=== PATIENT | male | born 1995 | race African-American/Black ===

== ENCOUNTER 2016-08-28 07:36 | Emergency (ER) | payer OTHER ==
[~2016-08-28] VITALS: Ht 175.3 cm; Wt 77.0 kg
[2016-08-28 07:38] VITALS: BP 126/64; PULSE 84; RESP 14; TEMP 98.3; O2SAT 99
--- NOTE | 2016-08-28 07:43 | PD ---
HPI . sore throat x 1-2 days Chief Complaint: ENT Complaint Time Seen by Provider: 07:42 Travel History International Travel<30 days: No Contact w/Intl Traveler<30days: No Traveled to known affect area: No History of Present Illness HPI 21 yr old male with no PMH here with c/o sore throat for about 1-2 days. He says he has developed such a sore throat that he was unable to smoke cigarettes or marijuana yesterday evening. He tells me the pain is severe where he hasn't been able to drink today. He admits to a history of strep. He denies any fever, chills, drooling, or sob. PFSH Past Medical History Medical History: Denies Significant Hx Social History Tobacco Use: Yes Substance Use: Yes Allergies-Medications (Allergen,Severity, Reaction): Coded Allergies: No Known Allergies (Unverified , 08/24/16) Reported Meds & Prescriptions Reported Meds & Active Scripts Active Amoxicillin 500 Mg Cap 500 Mg PO BID 10 Days Review of Systems General / Constitutional: No: Fever Eyes: No: Visual changes HENT: Positive: Sore Throat, No: Headaches Cardiovascular: No: Chest Pain or Discomfort Respiratory: No: Shortness of Breath Gastrointestinal: No: Abdominal Pain Genitourinary: No: Dysuria Musculoskeletal: No: Pain Skin: No Rash Neurologic: No: Weakness Psychiatric: No: Depression Endocrine: No: Polydipsia Hematologic/Lymphatic: No: Easy Bruising Physical Exam Narrative GENERAL: AAO x 3, no acute distress, Well-nourished, well-developed patient. SKIN: Warm and dry. No visible rashes or bruising. HEAD: Normocephalic and atraumatic. EYES: No scleral icterus. No injection or drainage. ENT: No nasal drainage noted. Mucous membranes pink. Airway patent. Mild posterior pharynx erythema. No edema or exudates. TM normal b/l NECK: Supple, trachea midline. No JVD. CARDIOVASCULAR: Regular rate and rhythm without murmurs, gallops, or rubs. RESPIRATORY: Breath sounds equal bilaterally. No accessory muscle use. No rhonchi or rales. GASTROINTESTINAL: abdomen soft, nontender, nondistended. EXTREMITIES: No cyanosis or edema. BACK: Nontender without obvious deformity. No CVA tenderness. PSYCH: AAO x 3, normal affect. Data Data Last Documented VS Vital Signs Date Time Temp Pulse Resp B/P Pulse Ox O2 Delivery O2 Flow Rate FiO2 08/28/16 07:38 98.3 84 14 126/64 99 MDM Medical Decision Making Medical Screen Exam Complete: Yes Emergency Medical Condition: Yes Medical Record Reviewed: Yes Differential Diagnosis pharyngitis, sinusitis, less likely mononucleosis Narrative Course 21 yr old male with no PMH here with c/o sore throat for about 1-2 days. He says he has developed such a sore throat that he was unable to smoke cigarettes or marijuana yesterday evening. He tells me the pain is severe where he hasn't been able to drink today. He admits to a history of strep. He denies any fever, chills, drooling, or sob. Patient seen and examined. He appears to have acute pharyngitis. It is possible this is likely viral, but with history of strep I will go ahead and treat with amoxicillin. I've advised the patient that he could use Tylenol or Motrin as needed for pain and fever. Advise follow-up with his primary care provider. Patient verbalized understanding of instructions, questions were answered, and thanked me for their care. I advised them if their condition worsens, please return to the nearest emergency room for further care. Diagnosis Primary Impression: Acute pharyngitis Qualified Code: J02.9 - Acute pharyngitis, unspecified etiology Patient Instructions: General Instructions, Pharyngitis (ED) Departure Forms: Tests/Procedures, Work Release Enter return to work date: August 28, 2016 Additional Instructions: Take medications as prescribed. Try salt water gargles. Do not share utensils, toothbrush, etc. If you develop difficulty breathing, please go to the nearest emergency room. Please return to emergency department if your symptoms return or worsen. Follow up with your primary care provider. Take medications as prescribed. Use Tylenol or Motrin as needed for fever or pain. Med/Other Pt SpecificInfo: Prescription(s) given Scripts Amoxicillin 500 Mg Wly574 Mg PO BID 10 Days Ref 0 Prov:Rosalinda Delgado 08/28/16 Disposition: 01 DISCHARGE HOME Condition: Stable Belkys Veronica August 28, 2016 07:43
[2016-08-28] MEDS ORDERED: AMOX500C PO (07:47)
== END 2016-08-28 08:06 | disposition home or self-care (01) ==
LOC: NEPK 07:36
DX: J02.9 Acute pharyngitis, unspecified (principal); F12.90 Cannabis use, unspecified, uncomplicated; Z72.0 Tobacco use
CPT/HCPCS: 99282